=== PATIENT | female | born 1985 | race Hispanic/Latino ===

== ENCOUNTER 2022-04-23 17:21 | Emergency (ER) | payer SELFPAY ==
[2022-04-23] MEDS ORDERED: Ketorolac Tromethamine 30 MG/ML VIAL ONE (17:58)
== END 2022-04-23 18:17 | disposition home or self-care (01) ==
LOC: ERS 17:21
DX: M54.32 Sciatica, left side (principal); M54.31 Sciatica, right side
CPT/HCPCS: 96372; 99283; J1885